=== PATIENT | male | born 1945 | race Caucasian/White ===

== ENCOUNTER 2017-07-03 10:25 | Day surgery (SDC) | payer OTHER, MEDICARE ==
[~2017-07-03] VITALS: Ht 172.7 cm; Wt 84.5 kg
[~2017-07-03 10:25] MED LIST: ASCORBIC ACID500 M3 PO; ASPIRIN81 M2 PO; ATIVAN0.5 MG PO; COLCRYS0.6 MG PO; COQ10-VIT E 201 EACH PO; COZAAR50 MG PO; CRESTOR10 MG PO; CYANOCOBALAM1000 MCG PO; KRILL OIL500 MG PO; LOPRESSOR25 MG PO; MAGNESIUM400 M1 PO; NITROSTAT0.3 MG SL; NORVASC10 MG PO; RAYOS2 MG PO; UROXATRAL10 MG PO; VITAMIN D31000 UNIT PO; VITAMIN E400 UNIT PO; ZYLOPRIM100 MG PO
[2017-07-03 13:34] VITALS: BP 112/76
[2017-07-03 18:05] VITALS: BP 159/95
== END 2017-07-03 18:33 | disposition home or self-care (01) ==
LOC: SDC 10:25
DX: H35.341 Macular cyst, hole, or pseudohole, right eye (principal); H43.811 Vitreous degeneration, right eye; H35.371 Puckering of macula, right eye; E11.319 Type 2 diabetes mellitus with unspecified diabetic retinopathy without macular edema; I25.10 Atherosclerotic heart disease of native coronary artery without angina pectoris; I10 Essential (primary) hypertension; E78.5 Hyperlipidemia, unspecified; K21.9 Gastro-esophageal reflux disease without esophagitis; F41.9 Anxiety disorder, unspecified; I25.2 Old myocardial infarction; Z82.49 Family history of ischemic heart disease and other diseases of the circulatory system; Z79.82 Long term (current) use of aspirin
CPT/HCPCS: J0690; J3300